=== PATIENT | female | born 1980 | race Caucasian/White ===

== ENCOUNTER 2017-05-22 07:43 | Inpatient (IN) ==
[2017-05-22] MEDS ORDERED: Metoclopramide 10 MG/2 ML VIAL IVP PRN (10:11)
[2017-05-22] MEDS ORDERED: Famotidine 20 MG/2 ML VIAL IVP PRN (10:11)
[2017-05-22] MEDS ORDERED: Ondansetron 4 MG/2 ML VIAL IVP PRN (10:11)
[2017-05-22] MEDS ORDERED: Naloxone 0.4 MG/ML INJ IVP PRN (10:11)
[2017-05-22] MEDS ORDERED: miSOPROStol 100 MCG TABLET PO STA (10:17)
[2017-05-22] MEDS ORDERED: Penicillin G Potassium 5,000,000 UNIT in D5% in Water (Mini-Bag+) 100 ML IVPB ONE (10:17)
[2017-05-22] MEDS: Ringers Solution, Lactated 1,000 ML IVC SCH ×2 (10:41→21:03)
[2017-05-22 10:45] LABS: Basophils % 0.2 %; Eosinophils # 0.1 K/mcL (0.0-0.6); Eosinophils % 1.3 %; Hematocrit 36.3 % (35.3-44.9); Hemoglobin 11.7 g/dL (11.5-15.4); Immature Granulocytes % 0.4 % (0-4); Lymphocytes # 1.2 K/mcL (0.6-4.6); Lymphocytes % 13.9 %; Mean Corpuscular HGB Conc 32.2 g/dL (31.6-35.5); Mean Corpuscular Hemoglobin 27.2 pg (28.0-33.3); Mean Corpuscular Volume 84.4 fL (83.0-100.0); Mean Platelet Volume 9.6 fL (9.4-12.4); Monocytes # 0.6 K/mcL (0.0-1.3); Monocytes % 7.2 %; Neutrophils # 6.4 K/mcL (1.6-8.9); Platelet Count 147 K/mcL (140-400); Red Cell Distribution Width 15.6 % (11.5-14.5)
[2017-05-22 10:53] LABS: Amphetamine Screen,Urine Negative ng/mL (Cutoff=1000); Barbiturate Screen,Urine Negative ng/mL (Cutoff=200); Benzodiazepines Screen,Urine Negative ng/mL (Cutoff=200); Cannabinoid Screen,Urine Negative ng/mL (Cutoff = 50); Cocaine Screen,Urine Negative ng/mL (Cutoff= 300); Opiate Screen,Urine Negative ng/mL (Cutoff=300); Phencyclidine Screen,Urine Negative ng/mL (Cutoff=25)
[2017-05-22] MEDS ORDERED: miSOPROStol 100 MCG TABLET PO SCH (12:00)
--- NOTE | 2017-05-22 12:05 | OB/GYN History & Physical ---
Date of Encounter: 05/22/17 Time of Encounter: 12:03 Assessment and Plan (1) 41 weeks gestation of Current visit: Yes Status: Acute Admit for IOL with cytotec. GBS unknown. Begin PCN ppx. Epidural if requested. AROM when able. Anticiapte . (2) Late care affecting Current visit: Yes Status: Acute Qualifiers: Trimester: third trimester Qualified Code(s): O09.33 - Supervision of with insufficient care, third trimester (3) Multiparity, grand, in labor and delivery Current visit: No Status: Acute Qualifiers: Trimester: third trimester Qualified Code(s): O09.43 - Supervision of with grand multiparity, third trimester (4) Post-dates Current visit: No Status: Chronic Qualifiers: Post-term type: 40-42 weeks gestation Qualified Code(s): O48.0 - Post-term History of Present Illness Chief complaint: IOL, postdates, 41 weeks HPI: Ms. Arceo is a 36 year old female presenting at 41w4d for IOL due to postdates. complicated by AMA status, grand multiparity, and late care. She denies complaints today. Good FM. Past Med Surg Social Fam HX - Past Medical History Medical history: no medical history Psychiatric history: depression - Past Surgical History Surgical History: cholecystectomy - Social History Smoking Status: Never smoker Smokeless Tobacco Status: No Alcohol use: none Drug use: none - Family History Mother Adopted: No Family Member Ethnicity: Non- Living Status: Still Living Hx Family Cardiac Disorders: No Hx Family Respiratory Disorders: No Hx Family Cancer: No Hx Family GI Disorders: No Hx Family Genitourinary Disorders: No Hx Family Endocrine Disorder: No Hx Family Musculoskeletal Disorders: No Hx Family Neuromuscular Disorders: No Hx Family Neurologic Disorders: Yes (Seizure Disorder) Hx Family HEENT Disorders: No Hx Family Autoimmune Disorders: No Hx Family Reproductive Disorders: No Hx Family Psychosocial Disorders: No Hx Family Medical Disorders: No Obstetrical History - Pregnancies : 10 Para: 8 Term: 8 Ab's: 1 Livin Medications and Allergies Multi Tablet 05/22/17 [History] 3 Allergy/AdvReac Type Severity Reaction Status Date / Time No Known Allergies Allergy Verified 02/23/16 23:15 Review of System OB All systems PM: reviewed and no additional remarkable complaints except as stated Exam - Constitutional Constitutional: well developed, well nourished, no acute distress - HEENT HEENT: Mucus Membranes Moist - Lungs Respiratory exam: CTAB - Cardiovascular Cardiovascular exam: RRR, +S1, +S2 - Abdomen Abdomen: Present: gravid, non tender - Extremities Extremities exam: normal inspection - Vagina Vagina: Present: normal moisture - Cervix Dilation: 1 (per RN) - Anus/Rectum Anus/Rectum: Present: normal perianal skin Results Result Diagrams: 05/22/17 09:09 Abnormal lab results MCH 27.2 pg (28.0-33.3) L 05/22/17 09:09 RDW 15.6 % (11.5-14.5) H 05/22/17 09:09 All other labs normal. - VTE Reasons for not Prescribing Prophylaxis: Treatment not Indicated - Low risk for VTE
--- NOTE | 2017-05-22 13:23 | OB Labor Progress Note ---
Date of Encounter: 05/22/17 Time of Encounter: 13:20 Labor Progress Note - Subjective Subjective: Pt reports mild discomfort with contractions. - Cervix Cervix: 3/70/-2 - Heart Tones Heart Tones: Category I, arrhythmia noted, peds notified - [place]: 1-3 minutes - Interventions Interventions: FSE placed following SROM - Plan Plan: Await peds return call to determine if they would like to hear the arrhythmia. Will replace EFM when able.
[2017-05-22] MEDS: Penicillin G Potassium 2,500,000 UNIT in D5% in Water 100 ML IVPB SCH ×3 (14:59→23:04)
[2017-05-22] MEDS ORDERED: Oxytocin 20 units/ LR 1000 mL 20 UNIT/1,000 ML BAG IVC SCH (16:30)
--- NOTE | 2017-05-23 00:33 | OB/GYN Procedure Note ---
Delivery - Delivery Date: 05/23/17 Provider: Regla Garcia Intrapartum events: none Delivery induction: oxytocin, misoprostol Delivery monitor: external FHT, external uterine, internal FHT Estimated Blood Loss: 200 - Infant (s) A Infant Delivery Date: 05/23/17 Infant Delivery Time: 00:18 Presentation: vertex Position: unknown Route of delivery: Gender: Female Viability: Viable Pounds: 9 Ounces: 2 Weight Gram: 4.14 kg at 1 minute: 8 at 5 mins: 9 Shoulder Dystocia: not encountered Specimens collected: cord blood Placenta: spontaneous Cord: 3 umbilical vessels - Repair Episiotomy: none Laceration Description: None - Complications Delivery complications: none Delivery comments: Upon arrival to the room the infant's shoulders were delivering with maternal effort and placed on mom's abdomen. Infant was vigorous and crying. Cord was allowed to cease pulsation and then double clamped and cut. Cord blood was collected. Nurse at bedside states the delivery was quick without nuchal cord or shoulder dystocia. There were no vaginal, cervical, or perineal lacerations on exam. The placenta delivered spontaneously, complete, and intact with 3 vessel cord. Uterus was firm and bleeding minimal. Mother and are recovering in LDR in stable condition. - Disposition Mom disposition: stable in LDR [place] disposition: stable in LDR
[2017-05-23] MEDS ORDERED: Acetaminophen 325 MG TABLET PO PRN (02:45)
[2017-05-23] MEDS ORDERED: Oxytocin 20 units/ LR 1000 mL 20 UNIT/1,000 ML BAG IVC SCH (02:45)
[2017-05-23] MEDS ORDERED: Ibuprofen 600 MG TABLET PO PRN (02:45)
[2017-05-23] MEDS ORDERED: Oxytocin 20 units/ LR 1000 mL 20 UNIT/1,000 ML BAG IVC ONE (02:45)
--- NOTE | 2017-05-23 08:16 | Discharge Summary ---
Date of Encounter: 05/23/17 Time of Encounter: 08:15 - Discharge Diagnosis (1) Status post vaginal delivery Priority: Primary Status: Acute Comments: patient doing well, ok for discharge - Discharge Medications Home Medications: Multi Tablet 05/22/17 [History] Allergies/Adverse Reactions: 3 Allergy/AdvReac Type Severity Reaction Status Date / Time No Known Allergies Allergy Verified 02/23/16 23:15 Data Procedures and tests throughout hospitalization: Laboratory Tests 05/22/17 05/22/17 09:09 09:10 WBC 8.3 RBC 4.30 Hgb 11.7 Hct 36.3 MCV 84.4 MCH 27.2 L MCHC 32.2 RDW 15.6 H Plt Count 147 MPV 9.6 Immature Gran % 0.4 Seg Neutrophils % 77.0 Lymphocytes % 13.9 Monocytes % 7.2 Eosinophils % 1.3 Basophils % 0.2 Neutrophils # 6.4 Lymphocytes # 1.2 Monocytes # 0.6 Eosinophils # 0.1 Basophils # 0.0 Urine Opiates Screen Negative Ur Barbiturates Screen Negative Ur Phencyclidine Scrn Negative Ur Amphetamines Screen Negative U Benzodiazepines Scrn Negative Urine Cocaine Screen Negative U Marijuana (THC) Screen Negative Labs on day of discharge: Labs from last 24 hours 05/22/17 05/22/17 09:10 09:09 WBC 8.3 RBC 4.30 Hgb 11.7 Hct 36.3 MCV 84.4 MCH 27.2 L MCHC 32.2 RDW 15.6 H Plt Count 147 MPV 9.6 Immature Gran % 0.4 Seg Neutrophils % 77.0 Lymphocytes % 13.9 Monocytes % 7.2 Eosinophils % 1.3 Basophils % 0.2 Neutrophils # 6.4 Lymphocytes # 1.2 Monocytes # 0.6 Eosinophils # 0.1 Basophils # 0.0 Urine Opiates Screen Negative Ur Barbiturates Screen Negative Ur Phencyclidine Scrn Negative Ur Amphetamines Screen Negative U Benzodiazepines Scrn Negative Urine Cocaine Screen Negative U Marijuana (THC) Screen Negative Date of admission: 05/22/17 07:43 Primary care physician: PCP NONE - Patient Status Disposition: Home, Self-Care Condition: Good Functional capacity at discharge: independent ambulation Overall status at discharge: patient is progressing back to baseline - Discharge Instructions Follow Up With: NONE,PCP [Primary Care Provider] - Hospital Course [employer] Time Attestation: Total time spent providing and/or coordinating discharge services: Exam - Constitutional Vitals: Temp Pulse Resp BP Pulse Ox 97.9 F 78 14 112/67 98 05/23/17 05:05 05/23/17 05:05 05/23/17 05:05 05/23/17 05:05 05/23/17 05:05 General appearance IM: A&O X 3 - Respiratory Respiratory exam: Present: CTAB - Cardiovascular Cardiovascular exam IM: Present: RRR - GI/Abdominal GI/Abdominal exam IM: normal bowel sounds - VTE Reasons for not Prescribing Prophylaxis: Treatment not Indicated - Low risk for VTE
[2017-05-23 08:37] VITALS: BP 112/73
[2017-05-23] MEDS ORDERED: Prenatal Vit/FA 1 EACH TABLET PO SCH (09:00)
--- NOTE | 2017-05-25 16:54 | Venous Imaging Report ---
LE Venous Duplex Patient Name:Shira Arceo Order Number:[id number] Procedure Date:05/23/2017 Date:1980Age:36 yrs Gender:Female Location:[facility] Room #: 1NE21 Tank Insulator Rubber:Brisa Navarro, RDCS, RVT Referring MD:Eriberto Rider MD Reading MD:Duran Marks MD , FACS Primary Indications:Edema, Varicose veins Secondary Indications: Risk Factors Yes/No Hx of DVT Yes Impressions: Bilateral lower extremity: normal superficial and deep exam. Findings Venous Duplex Results: Right: Venous imaging of the lower extremity reveals full patency and normal vessel compressibility of the right distal iliac, right common femoral, right superficial femoral, right popliteal, right posterior tibial, right peroneal, right great saphenous and right lesser saphenous. Doppler signals in the evaluated veins were normal. Left: Venous imaging of the lower extremity reveals full patency and normal vessel compressibility of the left distal iliac, left common femoral, left superficial femoral, left popliteal, left posterior tibial, left peroneal, left great saphenous and left lesser saphenous. Doppler signals in the evaluated veins were normal. Prior Study: No prior study available for comparison. Lower Extremity Venous Duplex Side Vein Compress Spontaneous Flow Augment Diameter (cm) Depth (cm) Right Distal Iliac Normal Yes Phasic Yes Right Common Femoral Normal Yes Phasic Yes Right Superficial Femoral Normal Yes Phasic Yes Right Popliteal Normal Yes Phasic Yes Right Posterior Tibial Normal Yes Phasic Yes Right Peroneal Normal Yes Phasic Yes Right Great Saphenous Normal Yes Phasic Yes Right Lesser Saphenous Normal Yes Phasic Yes Left Distal Iliac Normal Yes Phasic Yes Left Common Femoral Normal Yes Phasic Yes Left Superficial Femoral Normal Yes Phasic Yes Left Popliteal Normal Yes Phasic Yes Left Posterior Tibial Normal Yes Phasic Yes Left Peroneal Normal Yes Phasic Yes Left Great Saphenous Normal Yes Phasic Yes Left Lesser Saphenous Normal Yes Phasic Yes Updated by Duran Marks MD, FACS on 05/25/2017 4:46:25 PM Duran Marks MD electronically signed on 05/25/2017 4:46:40 PM with status of Final
== END 2017-05-23 11:00 | disposition home or self-care (01) | DRG 775 ==
LOC: 1NENULAB 07:43 → 1NENUOBS 05-23 02:44
PROVIDERS: ADMIT Obstetrics & Gynecology; ATTEND Obstetrics & Gynecology

== ENCOUNTER 2019-02-05 06:00 | Inpatient (IN) ==
[2019-02-05] MEDS ORDERED: Naloxone 0.4 MG/ML INJ IVP PRN (06:15)
[2019-02-05] MEDS ORDERED: Oxytocin 20 units/ LR 1000 mL 20 UNIT/1,000 ML BAG IVC SCH ×2 (06:15→18:24)
[2019-02-05] MEDS ORDERED: Penicillin G Potassium 5,000,000 UNIT in 0.9 % Sodium Chloride Mini Bag 100 ML IVPB ONE (06:15)
[2019-02-05] MEDS ORDERED: Ringers Solution, Lactated 1,000 ML IVC SCH (06:15)
[2019-02-05] MEDS ORDERED: Ondansetron 4 MG/2 ML VIAL IVP PRN ×3 (06:15→18:24)
[2019-02-05] MEDS ORDERED: Metoclopramide 10 MG/2 ML VIAL IVP PRN ×2 (06:15→18:24)
[2019-02-05] MEDS ORDERED: *HR* Nalbuphine 10 MG/ML AMPUL IVP PRN (06:15)
[2019-02-05] MEDS ORDERED: Famotidine 20 MG/2 ML VIAL IVP PRN (06:15)
[2019-02-05] MEDS ORDERED: Lidocaine 1% 20 ML MDV INFILT PRN (06:15)
[2019-02-05 07:04] LABS: Basophils % 0.3 %; Eosinophils # 0.1 K/mcL (0.0-0.6); Eosinophils % 1.8 %; Hematocrit 34.2 % (35.3-44.9); Hemoglobin 11.1 g/dL (11.5-15.4); Immature Granulocytes % 0.6 % (0-4); Lymphocytes # 1.2 K/mcL (0.6-4.6); Lymphocytes % 16.4 %; Mean Corpuscular HGB Conc 32.5 g/dL (31.6-35.5); Mean Corpuscular Hemoglobin 28.3 pg (28.0-33.3); Mean Corpuscular Volume 87.2 fL (83.0-100.0); Mean Platelet Volume 9.9 fL (9.4-12.4); Monocytes # 0.7 K/mcL (0.0-1.3); Neutrophils # 5.1 K/mcL (1.6-8.9); Platelet Count 158 K/mcL (140-400); Red Blood Count 3.92 M/mcL (3.82-4.97); Red Cell Distribution Width 15.8 % (11.5-14.5); Segmented Neutrophils % 70.9 %; White Blood Count 7.2 K/mcL (4.3-11.1)
[2019-02-05 08:30] LABS: Amphetamine Screen,Urine Negative ng/mL (Cutoff=1000); Barbiturate Screen,Urine Negative ng/mL (Cutoff=200); Benzodiazepines Screen,Urine Negative ng/mL (Cutoff=200); Cannabinoid Screen,Urine Negative ng/mL (Cutoff = 50); Cocaine Screen,Urine Negative ng/mL (Cutoff= 300); Opiate Screen,Urine Negative ng/mL (Cutoff=300); Phencyclidine Screen,Urine Negative ng/mL (Cutoff=25)
[2019-02-05] MEDS ORDERED: Penicillin G Potassium 2,500,000 UNIT in 0.9 % Sodium Chloride 100 ML IVPB SCH (11:00)
--- NOTE | 2019-02-05 11:41 | OB/GYN History & Physical ---
Date of Encounter: 02/05/19 Time of Encounter: 11:41 Assessment and Plan (1) Positive GBS test Current visit: Yes Status: Acute PCN in labor and delivery. Already receiving her second dose. (2) 41 weeks gestation of Current visit: Yes Status: Acute (3) Late care affecting Current visit: Yes Status: Acute Qualifiers: Trimester: third trimester Qualified Code(s): O09.33 - Supervision of with insufficient care, third trimester (4) Multiparity, grand, in labor and delivery Current visit: Yes Status: Acute Qualifiers: Trimester: third trimester Qualified Code(s): O09.43 - Supervision of with grand multiparity, third trimester (5) Post-dates Current visit: Yes Status: Chronic Plan for Pitocin induction of labor today as initiated with external monitoring in anticipation of vaginal delivery. May ambulate with EFM. Qualifiers: Post-term type: 40-42 weeks gestation Qualified Code(s): O48.0 - Post-term (6) Advanced maternal age during , antepartum Current visit: Yes Status: Acute Declined genetic screening tests. History of Present Illness Chief complaint: Here for induction of labor HPI: Ms. Arceo is a 38 year old female G 11 P 9-0-1-0 at 41 4/7 weeks presents to labor and delivery for induction of labor postdates. She reports good movements. She states she is now starting to feel her contractions with the pitocin. Her has been complicated by late/limited care, grandmulipairty, GBS positive, and advanced maternal age. Past Med Surg Social Fam HX - Past Medical History Source: patient Medical history: no medical history (she has had superficial blood clots (not DVTs)) Psychiatric history: depression - Past Surgical History Surgical History: cholecystectomy Additional surgical history: gallbladder - Social History Smoking Status: Never smoker Smokeless Tobacco Status: No Alcohol use: none Drug use: none - Family History Mother Adopted: No Family Member Ethnicity: Non- Living Status: Still Living Hx Family Cardiac Disorders: No Hx Family Respiratory Disorders: No Hx Family Cancer: No Hx Family GI Disorders: No Hx Family Endocrine Disorder: No Hx Family Neuromuscular Disorders: No Hx Family Neurologic Disorders: Yes (Seizure Disorder) Hx Family HEENT Disorders: No Hx Family Autoimmune Disorders: No Obstetrical History - Pregnancies : 11 Para: 9 Term: 9 : 0 Ab's: 1 Livin Medications and Allergies No Known Home Drugs 02/05/19 [History] Allergy/AdvReac Type Severity Reaction Status Date / Time No Known Allergies Allergy Verified 02/05/19 06:27 Review of System OB All systems PM: reviewed and no additional remarkable complaints except as stated Exam - Constitutional Constitutional: well developed, well nourished, no acute distress - HEENT HEENT: EOMI - Lungs Respiratory exam: CTAB - Cardiovascular Cardiovascular exam: RRR - Abdomen Abdomen: Present: bowel sounds normal, gravid, non tender - Extremities Extremities exam: normal inspection (with varicositied noted) Deep Tendon Reflex Grade: 0 Absent - Vulva Vulva: bilateral: normal - Vagina Vagina: Present: normal moisture - Cervix Dilation: 4 Effacement: 80 Station: -3 (anterior, attempt at AROM was unsuccessful due to the anterior angle) - Anus/Rectum Anus/Rectum: Present: normal perianal skin Results Result Diagrams: 02/05/19 06:30 Abnormal lab results Hgb 11.1 g/dL (11.5-15.4) L 02/05/19 06:30 Hct 34.2 % (35.3-44.9) L 02/05/19 06:30 RDW 15.8 % (11.5-14.5) H 02/05/19 06:30 All other labs normal. US - abdomen: report reviewed (from 02/02/2019) - VTE Reasons for not Prescribing Prophylaxis: Treatment not Indicated - Low risk for VTE
[2019-02-05] MEDS ORDERED: *HR* Morphine Sulfate/PF 10 MG/10 ML AMPUL ONE (15:09)
[2019-02-05] MEDS ORDERED: *HR* FentaNYL (PF) 100 MCG/2 ML VIAL ONE (15:09)
[2019-02-05] MEDS ORDERED: *HR* Oxytocin 10 UNIT/ML VIAL IM ONE ×2 (15:11→16:20)
--- NOTE | 2019-02-05 15:48 | Anesthesia Evaluation PreOp ---
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: Denies Any Significant HX Other Medical History: GERD Anesthesia History: No Prior Anesthetic Complications, Past Anesthesia (Danya) : Yes Test: Positive Alcohol Use: none Drug use: none Medications and Allergies No Known Home Drugs 02/05/19 [History] Allergy/AdvReac Type Severity Reaction Status Date / Time No Known Allergies Allergy Verified 02/05/19 06:27 - Meds/Allergy Pre-op Review Medications Reviewed: Yes Allergies Reviewed: Yes Beta Blockers on Current Med List: No Anesthesia Results - Labs 02/05/19 06:30 Anesthesia Exam 130/80 80 16 fht 145 Height: 5'2" Weight: 87 NPO (# of Hours): 6 Pain Scale: 4 Pain Scale Used: Numeric (1 - 10) - HEENT Pupil (Motor): Pupils equal Mallampati: II Teeth: Normal Oral Opening: Greater than 3 - DRY PASTE SUPERVISOR LOC: Oriented DRY PASTE SUPERVISOR Motor: Normal RUE, Normal LUE, Normal RLE, Normal LLE, Normal Face DRY PASTE SUPERVISOR Sensory: Normal: RUE, LUE, RLE, LLE, Face - Cardiac Rhythm: Regular Murmur: None - Pulmonary Breath Sounds: bilateral Clear Respiratory Effort: Symmetrical Anesthesia Assess/Plan ASA Score: 2 Level of consciousness: Cooperative Anesthetic Plan: Spinal (risks discussed, questions answered, consented) Autologous Blood: No Monitoring Plan: Standard Monitors Recovery Plan: PACU
--- NOTE | 2019-02-05 15:51 | Anesthesia Procedures ---
Date of Encounter: 02/05/19 Time of Encounter: 15:49 Procedures: Anesthesia - Epidural/Spinal Patient ID/Chart reviewed: Yes Patient examined: Yes OB Eval: Gestational age: 41 OB Eval: : 11 OB Eval: Hx Para: 9 OB Eval: Dilated at (cm): 7 OB Eval: Contractions: Non-stressed pattern Consent Obtained: Yes Supplemental Oxygen: Nasal Cannula Supplemental Oxygen Rate (L/min): 3 Site Prep: Aseptic Technique, Sterile prep and drape, 0.5% Chlorhexidine/Alcohol Patient position: upright Local Anesthetic: Lidocaine 1% Amount of Local Anesthetic used: 3 Interspace Used: L2-L3 Loss of Resistance (FRANCHESCA): No Blood: No CSF: Yes (clear x 4 quads) Paresthesia: No Spinal Needle Gauge: 25 Spinal Dose: marcaine 12mg duromorph 0.25mg, fentanyl 10mcg Procedure: aseptic, yonatan well, VSS, effective Vitals + FHT's: 130/80 66 16 fht 144
[2019-02-05] MEDS ORDERED: *HR* Meperidine 25 MG/ML SYRINGE IVP PRN (15:52)
[2019-02-05] MEDS ORDERED: *HR* HYDROmorphone (PF) 1 MG/ML SYRINGE IVP PRN (15:52)
[2019-02-05] MEDS ORDERED: Acetaminophen IV 1,000 MG/100 ML INFUS..BTL IVPB ONE (15:52)
[2019-02-05] MEDS ORDERED: Ringers Solution, Lactated 1,000 ML ONE (16:20)
--- NOTE | 2019-02-05 16:26 | OB/GYN Procedure Note ---
Section - Date of procedure: 02/05/19 Preop diagnosis: desires sterilization, breech Post-op diagnosis: same Procedure: section, primary low transverse, bilateral tubal ligation Surgeon: Regla Herron Blood Loss: 450 Was there an surgical assistant certified present: Yes Clerical Investigator: Carmen Gutiérrez Data Assistant: David Herrera Anesthesia Type: Spinal section complications: none Disposition: L&D Recovery Room Specimens: Placenta, Right tube segment, Left tube segment - Infant (s) A Delivery Date: 02/05/19 Infant Delivery Time: 15:41 Presentation: mellisa breech Route of delivery: breech extraction () Gender: Male Viability: Viable Pounds: 8 Ounces: 9 Gram Weight: 3.87 kg at 1 minute: 9 at 5 minutes: 9 Placenta: spontaneous Cord: 3 umbilical vessels - Narrative Narrative: Patient was taken to the operative suite and placed under spinal anesthetic. She was then prepped and draped in normal sterile fashion in the dorsal supine position. Timeout was then performed. Antibiotics were given at room time. SCDs are on and active. Pfannenstiel skin incision is then made and carried through to underlying layer of fascia with the Bovie. The fascia was then incised in the midline and incision extended laterally with the Gilbert scissors. The fascia was tented up and dissected off the rectus muscles sharply. The rectus muscles were in the midline and the peritoneum was tented up and entered sharply with the Metzenbaum scissors. The peritoneal incision was then extended bluntly. The bladder blade was then inserted and the vesicouterine peritoneum was entered sharply. Bladder flap was created digitally. A low transverse uterine incision was then made. The breech was brought to the incision and the infant was delivered using breech maneuvers. There was no nuchal cord. Cord was clamped and cut. was handed to waiting nursery staff. Placenta delivered spontaneously complete and intact with a three-vessel cord. The uterus was cleared of all clots and debris using moist laparotomy sponge. The uterine incision was then closed using 0 Vicryl in a running locked fashion. A second layer of the same suture was used to obtain excellent hemostasis. The abdomen was then cleared of all clots and debris using copious irrigation. Attention was turned to the patient's tubes. The left tube was grasped and followed to the fimriated end. A midsection of the tube was then double suture ligated using 0 plain gut. The midsection of tube was then transected. Hemostasis was assured. The right tube was grasped and followed to the fi mriated end. A midsection of the tube was then double suture ligated using 0 plain gut. The midsection of tube was then transected. Hemostasis was assured and the tube was returned to the abdomen. The uterine incision was again re- examined and found to be hemostatic without further repair. The fascial incision was then closed using 0 Vicryl in a running fashion. The skin was closed using 4-0 Vicryl in a subcuticular fashion. Steri-Strips and sterile dressing are then placed. Mother and taken to recovery in stable condition.
[2019-02-05] MEDS ORDERED: *HR* OxyCODONE/APAP 5/325 TABLET PO PRN (18:24)
[2019-02-05] MEDS ORDERED: Sennosides 8.6 MG TABLET PO PRN (18:24)
[2019-02-05] MEDS ORDERED: Simethicone 80 MG TAB.CHEW PO PRN (18:24)
[2019-02-05] MEDS ORDERED: *HR* OxyCODONE Immed Rel 5 MG TABLET PO PRN (18:24)
[2019-02-05] MEDS ORDERED: Lanolin 7 G OINT...G. TP PRN (23:41)
[2019-02-06] MEDS: Prenatal Vit/FA 1 EACH TABLET PO SCH (09:01)
[2019-02-06] MEDS: Ibuprofen 600 MG TABLET PO PRN ×2 (09:02→17:54)
--- NOTE | 2019-02-06 09:11 | OB/GYN Progress Note ---
Date of Encounter: 02/06/19 Time of Encounter: 09:09 - Assessment and Plan (1) delivery delivered Current Visit: Yes Status: Acute Pt meeting POD1 milestones. Await spontaneous void, ambulation and passage of flatus. Pt is considering discharge home this evening if she is feeling well. Milestones required for discharge discussed. (2) Breast feeding status of mother Current Visit: Yes Status: Acute Subjective - Subjective Interval history: Pt reports feeling sore at the incision site when moving around. When she is still she has no pain. She reports her catheter was removed this am but she has not been up to void yet. She states she was up in the chair for a while this am. Patient reports: appetite normal [place]: doing well Objective - Vital Signs Latest vital signs: Vital Signs Temp Pulse Resp BP Pulse Ox 02/06/19 08:08 98.1 F 82 16 103/70 97 02/06/19 04:00 98.2 F 70 16 101/63 97 02/05/19 22:15 98.6 F 70 15 114/74 96 02/05/19 21:00 98.4 F 77 16 116/75 97 02/05/19 19:45 97.4 F L 74 15 114/73 98 02/05/19 18:56 98.1 F 84 18 120/74 97 02/05/19 18:30 97.6 F 72 16 117/76 97 Intake and Output 02/05/19 02/06/19 02/06/19 23:59 07:59 15:59 Intake Total 0 / 0 Output Total 780 / 780 Balance -780 / -780 Intake: Oral 0 / 0 Output: Catheter 780 / 780 Other: Stool Characteristics Normal for Patient Weight 83.143 kg Patient Weight 02/06/19 23:59 Weight 83.143 kg - Exam Lungs: bilateral: normal Chest: Normal S1, Normal S2 Extremities: Present: edema (mild bilaterally, significant varicose veins bilaterally, no erythema or warmth) Abdomen: Present: soft Incision: Present: dressed (dressing dry and intact) Uterus: Present: firm Fundal Height: 2 (U/2)
--- NOTE | 2019-02-06 18:25 | Event Note ---
Date of Encounter: 02/06/19 Time of Encounter: 18:21 Called to evaluate bedside after she reported increased discomfort in the upper thigh. Reported to have a hx of "blood clots" and therefore her RN called us to the bedside to evaluate for possible DVT. The patient had SCDs at bedside. After speaking with the patient, she reports to have multiple "clots" in the past but was never placed on any kind of anticoagulation. After examining the patient with further discussion - we reported it was a hx of varicose veins. She has multiple (not new) on her lower extremities. These were the "clots" she referred to. We discussed these do not require US as those would be for the DVT, different from varicose veins or superficial thrombosis or thrombophlebitis. She is afebrile, VSS, HDS. We did, however, discuss the use of compression stockings. She is a , therefore after 10 years of and being ambulatory (lifestyle) - she needs the compression to assist with the laxity of her veinous structure. Also, we recommended the patient f/u with a vein specialist . Homans negative, no concern for DVT on evaluation. ALLY fisher ordered for patient. MD BENJAMIN
[2019-02-07] MEDS: Ibuprofen 600 MG TABLET PO PRN (05:28)
[2019-02-07] MEDS: Prenatal Vit/FA 1 EACH TABLET PO SCH (07:58)
[2019-02-07 08:09] VITALS: BP 112/74
--- NOTE | 2019-02-07 08:30 | Discharge Summary ---
Date of Encounter: 02/07/19 Time of Encounter: 08:27 - Discharge Diagnosis (1) delivery delivered Priority: Primary Status: Acute Comments: 38 y/o F /p c/s at 41 weeks POD2 reports recovering weel. Overnight re ported pain in left thigh at site of varicose veins already present before delivery. Physician deems not appearance of DVT and treated with education and compression stocking. Patient reports sweeling improved with compression stockings. She is tolerating regular diet with out nausea - reports flatus but no BM. Denies dysuria. Vaginal bleeding has slowed with out large clots. Patient reports pain well controlled on Motrin and due to cost considerations would like to take OTC Ibuprophen 200 mg three pills q 6 hours then hold opoiod pain medications script. (2) Varicose vein of leg, Priority: Secondary Status: Acute Comments: Varicose view not deemed highly suspicious for DVT her Dr Carbone note - compression stocking in place - patient advised may follow up out patient with vascular specialist (3) Breast feeding status of mother Priority: Secondary Status: Acute Comments: Breast pump at home (4) Pedal edema Priority: Secondary Status: Acute (5) Positive GBS test Priority: Secondary Status: Acute Comments: GBS postive treated with PCN x2 at least with out complications (6) S/P tubal ligation Priority: Secondary Status: Acute - Discharge Medications Prescriptions: New Docusate [Colace] 100 mg PO BID #60 capsule Ibuprofen [Motrin] 600 mg PO Q6HR PRN #60 tablet PRN Reason: Cramping OxyCODONE/APAP 5/325 [Percocet 5/325 MG] 1 each PO Q4HR PRN 3 Days #10 tablet PRN Reason: Moderate pain 4-6 Home Medications: Docusate [Colace] 100 mg PO BID #60 capsule 02/07/19 [Rx] Ibuprofen [Motrin] 600 mg PO Q6HR PRN #60 tablet 02/07/19 [Rx] OxyCODONE/APAP 5/325 [Percocet 5/325 MG] 1 each PO Q4HR PRN 3 Days #10 tablet 02/07/19 [Rx] Allergies/Adverse Reactions: Allergy/AdvReac Type Severity Reaction Status Date / Time No Known Allergies Allergy Verified 02/05/19 06:27 Data Procedures and tests throughout hospitalization: Laboratory Tests 02/05/19 02/05/19 06:30 06:30 WBC 7.2 RBC 3.92 Hgb 11.1 L Hct 34.2 L MCV 87.2 MCH 28.3 MCHC 32.5 RDW 15.8 H Plt Count 158 MPV 9.9 Immature Gran % 0.6 Seg Neutrophils % 70.9 Lymphocytes % 16.4 Monocytes % 10.0 Eosinophils % 1.8 Basophils % 0.3 Neutrophils # 5.1 Lymphocytes # 1.2 Monocytes # 0.7 Eosinophils # 0.1 Basophils # 0.0 Urine Opiates Screen Negative Ur Barbiturates Screen Negative Ur Phencyclidine Scrn Negative Ur Amphetamines Screen Negative U Benzodiazepines Scrn Negative Urine Cocaine Screen Negative U Marijuana (THC) Screen Negative Ur Drug Screen Interp See Below Date of admission: 02/05/19 06:13 Primary care physician: PCP NATHALIA Discharging clinician: Jessica Ortiz Anticipated date of discharge: 02/07/19 - Patient Status Disposition: Home, Self-Care Condition: Good Functional capacity at discharge: independent ambulation Overall status at discharge: patient is progressing back to baseline - Discharge Instructions Follow Up With: NONE,PCP [Primary Care Provider] - Regla Garcia DO [Partnered Physician] - - Diet and Activity Activity: increase activity as tolerated Diet: advance to your usual diet Hospital Course Reason for admission: induction of labor Delivery: section Episiotomy: none Laceration: none Other procedures: tubal ligation complications: none Discharge diagnosis: IUP at term delivered Cougar baby: male Hospital course: Section - Date of procedure: 02/05/19 Preop diagnosis: desires sterilization, breech Post-op diagnosis: same Procedure: section, primary low transverse, bilateral tubal ligation Surgeon: Regla Garcia Quantitated Blood Loss: 450 Was there an occupational therapy assistant present: Yes Signal System Testing Maintainer: Carmen Gutiérrez Family Resource Management Specialist: David Herrera Anesthesia Type: Spinal section complications: none Disposition: L&D Recovery Room Specimens: Placenta, Right tube segment, Left tube segment - (s) Infant A Infant Delivery Date: 02/05/19 Infant Delivery Time: 15:41 Presentation: mellisa breech Route of delivery: breech extraction () Gender: Male Viability: Viable Pounds: 8 Ounces: 9 Gram Weight: 3.87 kg at 1 minute: 9 at 5 minutes: 9 Placenta: spontaneous Cord: 3 umbilical vessels - Narrative Narrative: Patient was taken to the operative suite and placed under spinal anesthetic. She was then prepped and draped in normal sterile fashion in the dorsal supine position. Timeout was then performed. Antibiotics were given at room time. SCDs are on and active. Pfannenstiel skin incision is then made and carried through to underlying layer of fascia with the Bovie. The fascia was then incised in the midline and incision extended laterally with the Gilbert scissors. The fascia was tented up and dissected off the rectus muscles sharply. The rectus muscles were in the midline and the peritoneum was tented up and entered sharply with the Metzenbaum scissors. The peritoneal incision was then extended bluntly. The bladder blade was then inserted and the vesicouterine peritoneum was entered sharply. Bladder flap was created digitally. A low transverse uterine incision was then made. The infant breech was brought to the incision and the was delivered using breech maneuvers. There was no nuchal cord. Cord was clamped and cut. Infant was handed to waiting nursery staff. Placenta delivered spontaneously complete and intact with a three-vessel cord. The uterus was cleared of all clots and debris using moist laparotomy sponge. The uterine incision was then closed using 0 Vicryl in a running locked fashion. A second layer of the same suture was used to obtain excellent hemostasis. The abdomen was then cleared of all clots and debris using copious irrigation. Attention was turned to the patient's tubes. The left tube was grasped and followed to the fimriated end. A midsection of the tube was then double suture ligated using 0 plain gut. The midsection of tube was then transected. Hemostasis was assured. The right tube was grasped and followed to the fimriated end. A midsection of the tube was then double suture ligated using 0 plain gut. The midsection of tube was then transected. Hemostasis was assured and the tube was returned to the abdomen. The uterine incision was again re- examined and found to be hemostatic without further repair. The fascial incision was then closed using 0 Vicryl in a running fashion. The skin was closed using 4-0 Vicryl in a subcuticular fashion. Steri-Strips and sterile dressing are then placed. Mother and taken to recovery in stable condition. Time Attestation: Total time spent providing and/or coordinating discharge services: Time Spent: Less than 30 minutes - VTE Reasons for not Prescribing Prophylaxis: Treatment not Indicated - Low risk for VTE Documentation of Mechanical Device: Intermittent pneumatic compression device - Attending Attestation I examined this patient and my medical decision-making was reviewed with the Resident Physician. I agree with the documented findings, disposition and treatment plan as described. Negrito Mcneil CNM Exam - Constitutional Vitals: Temp Pulse Resp BP Pulse Ox 98.5 F 80 16 112/74 97 02/07/19 08:07 02/07/19 08:07 02/07/19 08:07 02/07/19 08:07 02/07/19 08:07 General appearance IM: cooperative, A&O X 3, no acute distress, answers questions appropriately - Respiratory Respiratory exam: Present: CTAB. Absent: accessory muscle use, respiratory distress - Cardiovascular Cardiovascular exam IM: Present: RRR. Absent: +S1, +S2 - GI/Abdominal GI/Abdominal exam IM: normal bowel sounds Incision: normal, intact (covered with dressing ) - Rectal Rectal exam: deferred - Uterine Tone: Firm Uterus Position: 2 Fingers Below Umbilicus - Extremities Exam Extremities exam IM: Present: full ROM, tenderness (at site of vericopse view only), radial pulses palpable and symmetrical. Absent: calf tenderness, joint swelling, pedal edema (compresion stocking in place) - Neurological Exam Neurological exam: alert, oriented X3, no focal deficits
== END 2019-02-07 12:23 | disposition home or self-care (01) | DRG 785 ==
LOC: 1NENULAB 06:13 → 1NENUOBS 18:23
PROVIDERS: ADMIT Obstetrics & Gynecology; ATTEND Obstetrics & Gynecology